=== PATIENT | male | born 1985 | race Caucasian/White ===

== ENCOUNTER 2021-08-06 11:56 | Emergency (ER) | payer OTHER ==
[~2021-08-06] VITALS: Ht 175.3 cm; Wt 127.0 kg
[2021-08-06] MEDS ORDERED: LISINOPRIL2.5 MG PO (12:14)
[2021-08-06] MEDS ORDERED: SIMVASTATIN5 MG PO (12:14)
[2021-08-06] MEDS ORDERED: SERTRALINE25 MG PO (12:15)
[2021-08-06] MEDS ORDERED: PROPANOLOL (12:15)
[2021-08-06] MEDS ORDERED: GABAPENTIN300 M2 (12:15)
[2021-08-06 12:52] LABS: HEMATOCRIT 44.1 % (39.0-50.0); HEMOGLOBIN 14.2 g/dl (14.0-18.0); IMMATURE GRANULOCYTES 0.3 % (0.0-5.0); MEAN CELL VOLUME 91.9 fL CALC (80.0-100.0); MEAN CORPUSCULAR HGB 29.6 pG CALC (26.0-32.0); MEAN CORPUSCULAR HGB CONC 32.2 g/dL CAL (32.0-36.0); NEUT# 11.47 thou/uL (1.82-7.42); RED BLOOD COUNT 4.8 mill/uL (4.70-6.10); RED CELL DISTRI WIDTH 12.9 % (11.5-15.5)
[2021-08-06 13:11] LABS: ALBUMIN 4.8 g/dL (3.2-5.0); ALKALINE PHOSPHATASE 70 u/l (38-126); ANION GAP 19 (6-22 (CALC)); BILIRUBIN, TOTAL 0.6 mg/dL (0.0-1.4); BUN 10 mg/dL (9-20); BUN/CREATININE RATIO 10 (12-20 (CALC)); CARBON DIOXIDE 27 mmol/l (22-30); CHLORIDE 102 mmol/l (95-108); CREATININE 1.1 mg/dL (0.7-1.3); GFR > 60 ML/MIN (>=60 (CALC)); GFR FOR AFR.AMER. > 60 ML/MIN (>=60 (CALC)); POTASSIUM 4.6 mmol/l (3.5-5.1); SGOT/AST 27 u/l (17-59); SODIUM 143 mmol/l (137-146); TOTAL PROTEIN 8.4 g/dL (6.3-8.2)
[2021-08-06] MEDS ORDERED: ALLOPURINOL100 MG PO (14:01)
[2021-08-06] MEDS ORDERED: MEDDOSEPAK PO (14:01)
[2021-08-06 14:07] VITALS: BP 130/90
== END 2021-08-06 14:18 | disposition home or self-care (01) | DRG 554 ==
LOC: ED 11:56
DX: M10.072 Idiopathic gout, left ankle and foot (principal); I10 Essential (primary) hypertension; E78.00 Pure hypercholesterolemia, unspecified

== ENCOUNTER 2021-10-11 08:24 | Emergency (ER) | payer OTHER ==
[~2021-10-11] VITALS: Ht 175.3 cm; Wt 125.0 kg
[2021-10-11] VITALS (12 sets, daily range): BP systolic 111–142; BP diastolic 66–95
[~2021-10-11 08:24] MED LIST: ALLOPURINOL100 MG PO; GABAPENTIN300 M2; LISINOPRIL2.5 MG PO; MEDDOSEPAK PO; PROPANOLOL; SERTRALINE25 MG PO; SIMVASTATIN5 MG PO
[2021-10-11 09:07] LABS: HEMATOCRIT 44.4 % (39.0-50.0); HEMOGLOBIN 14.3 g/dl (14.0-18.0); IMMATURE GRANULOCYTES 0.5 % (0.0-5.0); MEAN CELL VOLUME 92.5 fL CALC (80.0-100.0); MEAN CORPUSCULAR HGB 29.8 pG CALC (26.0-32.0); MEAN CORPUSCULAR HGB CONC 32.2 g/dL CAL (32.0-36.0); NEUT# 6.71 thou/uL (1.82-7.42); RED BLOOD COUNT 4.8 mill/uL (4.70-6.10); RED CELL DISTRI WIDTH 13.1 % (11.5-15.5); URINE BILIRUBIN - DIPSTICK NEGATIVE (NEGATIVE); URINE BLOOD DIPSTICK NEGATIVE (NEGATIVE); URINE COLOR YELLOW; URINE GLUCOSE - DIPSTICK NEGATIVE (NEGATIVE); URINE KETONE NEGATIVE (NEGATIVE); URINE LEUK ESTERASE NEGATIVE (NEGATIVE); URINE NITRITE - DIPSTICK NEGATIVE (Negative); URINE PROTEIN - DIPSTICK NEGATIVE (NEG-TRACE); URINE SPECIFIC GRAVITY >=1.030; URINE UROBILINOGEN - DIPSTICK 0.2 E.U./dL (0.2)
[2021-10-11 09:47] LABS: ALBUMIN 4.4 g/dL (3.2-5.0); ALKALINE PHOSPHATASE 61 u/l (38-126); ANION GAP 13 (6-22 (CALC)); BILIRUBIN, TOTAL 0.5 mg/dL (0.0-1.4); BUN 18 mg/dL (9-20); BUN/CREATININE RATIO 17 (12-20 (CALC)); CARBON DIOXIDE 26 mmol/l (22-30); CHLORIDE 105 mmol/l (95-108); CREATININE 1.1 mg/dL (0.7-1.3); GFR > 60 ML/MIN (>=60 (CALC)); GFR FOR AFR.AMER. > 60 ML/MIN (>=60 (CALC)); LIPASE 95 u/l (23-300); POTASSIUM 4.8 mmol/l (3.5-5.1); SGOT/AST 21 u/l (17-59); SODIUM 140 mmol/l (137-146); TOTAL PROTEIN 7.3 g/dL (6.3-8.2)
[2021-10-11] MEDS ORDERED: ZOFRAN4 MG/TAB PO (11:29)
[2021-10-11] MEDS ORDERED: CEFDINIR300 MG PO (11:29)
[2021-10-11] MEDS ORDERED: PERCOCET 5/325M1 TAB PO (11:29)
== END 2021-10-11 11:39 | disposition home or self-care (01) | DRG 694 ==
LOC: ED 08:24
PROVIDERS: Internal Medicine
DX: N13.2 Hydronephrosis with renal and ureteral calculous obstruction (principal); I10 Essential (primary) hypertension; Z87.442 Personal history of urinary calculi

== ENCOUNTER 2023-08-11 14:06 | Emergency (ER) | payer OTHER ==
[~2023-08-11] VITALS: Ht 175.3 cm; Wt 136.0 kg
[~2023-08-11 14:06] MED LIST changes: +ALLOPURINOL200 MG; +CEFDINIR300 MG PO; +COLCHICINE0.6 M2 PO; +INDOMETHACIN50 MG PO; +PERCOCET 5/325M1 TAB PO; +TAM75CAP PO; +ZOFRAN4 MG/TAB PO
[2023-08-11] MEDS ORDERED: MORPHINE SULFATE 4 MG/ML VIAL IM ONE (14:50)
[2023-08-11] MEDS ORDERED: TRAMADOL HYDROC50 M1 PO (15:58)
[2023-08-11 16:03] VITALS: BP 136/84
== END 2023-08-11 16:15 | disposition home or self-care (01) | DRG 556 ==
LOC: ED 14:06
DX: M25.511 Pain in right shoulder (principal); I10 Essential (primary) hypertension; M10.9 Gout, unspecified; E78.00 Pure hypercholesterolemia, unspecified